=== PATIENT | female | born 1990 | race Caucasian/White ===

== ENCOUNTER 2017-11-09 11:51 | Inpatient (IN) | payer OTHER ==
[2017-11-09 13:27] LABS: ADD MAN DIFF? NO
[2017-11-09] MEDS ORDERED: BUTORPHANOL 2 MG INJ IV ×2 (13:30)
[2017-11-09] MEDS ORDERED: MISOPROSTOL 200 MCG TAB PR (13:30)
[2017-11-09] MEDS ORDERED: IBUPROFEN 600 MG TAB PO (13:30)
[2017-11-09] MEDS ORDERED: OXYTOCIN 30 UNITS/LR 500 ML IV ×2 (13:30)
[2017-11-09] MEDS ORDERED: LIDOCAINE 1% (MPF) 30 ML INJ INJ (13:30)
[2017-11-09] MEDS ORDERED: METHYLERGONOVINE 0.2 MG INJ IM (13:30)
[2017-11-09] MEDS ORDERED: CARBOPROST 250 MCG INJ IM (13:30)
[2017-11-09 13:32] LABS: BASOPHILS % 0.5 % (0.0-2.0); EOSINOPHILS # 0.1 10^3/ul (0.0-0.5); EOSINOPHILS % 1.1 % (0.0-7.0); HEMATOCRIT 36.1 % (37.0-47.0); HEMOGLOBIN 12.5 g/dl (12.0-16.0); LYMPHOCYTES # 1.6 10^3/ul (0.8-2.9); LYMPHOCYTES % 18.4 % (15.0-51.0); MEAN CORPUSCULAR HEMOGLOBIN 30.9 pg (29.0-33.0); MEAN CORPUSCULAR HGB CONC 34.6 g/dl (32.0-37.0); MEAN CORPUSCULAR VOLUME 89.4 fl (82.0-101.0); MEAN PLATELET VOLUME 8.7 fl (7.4-10.4); MONOCYTE # 0.7 10^3/ul (0.3-0.9); MONOCYTES % 8.1 % (0.0-11.0); NEUTROPHILS % 71.2 % (39.0-77.0); PLATELET COUNT 210 10^3/UL (140-415); RED BLOOD COUNT 4.04 10^6/ul (4.20-5.40)
[2017-11-09 13:32] LABS: WHITE BLOOD COUNT 8.5 10^3/ul (4.8-10.8)
[2017-11-09 13:57] LABS: INR 0.93; PROTIME 12.6 Sec (11.9-14.9)
[2017-11-09 13:58] LABS: PARTIAL THROMBOPLASTIN TIME 31.3 Sec (25.0-35.0)
[2017-11-09 14:29] LABS: HEPATITIS B SURFACE ANTIGEN NEGATIVE (NEGATIVE)
[2017-11-09 14:38] LABS: AMPHETAMINE/METHAMPHETAMINE Negative (NEGATIVE); BARBITURATES Negative (NEGATIVE); BENZODIAZEPINES Negative (NEGATIVE); CANNABINOIDS Negative (NEGATIVE); COCAINE Negative (NEGATIVE); OPIATES Negative (NEGATIVE)
[2017-11-09] MEDS: LACTATED RINGER'S 1,000 ML IV (15:52)
[2017-11-09] MEDS: OXYTOCIN 30 UNITS/LR 500 ML IV ×3 (17:51→22:20)
[2017-11-09] MEDS: OXYCODONE/ACETAMINOPHEN (5/325) TAB PO (18:12)
[2017-11-09] MEDS ORDERED: HYDROCODONE/APAP (5/325) TAB PO ×2 (21:30)
[2017-11-09] MEDS ORDERED: OXYCODONE/ASPIRIN (4.88/325) TAB PO ×2 (21:30)
[2017-11-09] MEDS ORDERED: ONDANSETRON 4 MG INJ IV (21:30)
[2017-11-09] MEDS ORDERED: DIBUCAINE 1% 30 GM OINT PR (21:30)
[2017-11-09] MEDS ORDERED: WITCH HAZEL/GLYCERIN PAD PR (21:30)
[2017-11-09] MEDS ORDERED: BENZOCAINE 20% 56 ML SPRAY TOP (21:30)
[2017-11-09] MEDS ORDERED: ACETAMINOPHEN 325 MG TAB PO (21:30)
[2017-11-09 21:34] LABS: RAPID PLASMA REAGIN NONREACTIVE (NR)
[2017-11-09] MEDS: LANOLIN 7 GM TUBE TOP (22:19)
[2017-11-09] MEDS: IBUPROFEN 600 MG TAB PO (23:42)
[2017-11-10] MEDS: IBUPROFEN 600 MG TAB PO ×3 (05:41→18:01)
[2017-11-10 09:03] LABS: ADD MAN DIFF? NO
[2017-11-10 09:09] LABS: WHITE BLOOD COUNT 12.4 10^3/ul (4.8-10.8)
[2017-11-10 09:09] LABS: BASOPHIL # 0.1 10^3/ul (0.0-0.1); BASOPHILS % 0.6 % (0.0-2.0); EOSINOPHILS # 0.1 10^3/ul (0.0-0.5); HEMATOCRIT 34.9 % (37.0-47.0); HEMOGLOBIN 12.1 g/dl (12.0-16.0); LYMPHOCYTES # 2.3 10^3/ul (0.8-2.9); LYMPHOCYTES % 18.5 % (15.0-51.0); MEAN CORPUSCULAR HEMOGLOBIN 31.2 pg (29.0-33.0); MEAN CORPUSCULAR HGB CONC 34.7 g/dl (32.0-37.0); MEAN CORPUSCULAR VOLUME 89.9 fl (82.0-101.0); MONOCYTE # 1.2 10^3/ul (0.3-0.9); MONOCYTES % 9.5 % (0.0-11.0); NEUTROPHIL # 8.6 10^3/ul (1.6-7.5); NEUTROPHILS % 69.7 % (39.0-77.0); PLATELET COUNT 179 10^3/UL (140-415); RED BLOOD COUNT 3.88 10^6/ul (4.20-5.40); RED CELL DISTRIBUTION WIDTH 13.3 % (11.5-14.5)
[2017-11-10] MEDS: SENNA/DOCUSATE NA (8.6MG/50MG) TAB PO ×2 (10:20→21:00)
[2017-11-10] MEDS: INFLUENZA VIRUS VACCINE 0.5 ML (DISPENSING) IM* (13:42)
[2017-11-11] MEDS: IBUPROFEN 600 MG TAB PO ×3 (05:35→12:48)
[2017-11-11] MEDS: SENNA/DOCUSATE NA (8.6MG/50MG) TAB PO (09:00)
[2017-11-11] MEDS: MEASLES,MUMPS,RUBELLA VACCINE INJ SC* (09:52)
[2017-11-12] MEDS ORDERED: INFLUENZA VIRUS VACCINE 0.5 ML (DISPENSING) IM* (09:00)
== END 2017-11-11 15:00 | disposition home or self-care (01) | DRG 775 ==
LOC: OBT 11:51 → L-D 11:52 → OBT 12:45 → L-D 13:06 → PP1 20:35
PROC: 10E0XZZ Delivery of Products of Conception, External Approach (ICD-10-PCS; principal; 2017-11-09)
PROC: 3E033VJ Introduction of Other Hormone into Peripheral Vein, Percutaneous Approach (ICD-10-PCS; 2017-11-09)
DX: O48.0 Post-term pregnancy (principal); Z37.0 Single live birth; Z3A.40 40 weeks gestation of pregnancy
CPT/HCPCS: 76818; 80307; 85025; 85610; 85730; 86592; 86900; 86901; 87340; 90686

== ENCOUNTER 2019-03-18 02:12 | Inpatient (IN) | payer OTHER ==
[2019-03-18] MEDS ORDERED: LACTATED RINGER'S 1,000 ML IV (02:22)
[2019-03-18] MEDS ORDERED: LIDOCAINE 1% (MPF) 30 ML INJ (02:25)
[2019-03-18] MEDS ORDERED: AMPICILLIN 2 GM/NS (PMX) 100 ML (02:25)
[2019-03-18] MEDS ORDERED: MINERAL OIL LIGHT 10 ML VIAL TOP (02:30)
[2019-03-18] MEDS ORDERED: LIDOCAINE 1% (MPF) 30 ML INJ INJ (02:30)
[2019-03-18] MEDS ORDERED: CARBOPROST 250 MCG INJ IM ×2 (02:30→05:30)
[2019-03-18] MEDS ORDERED: OXYTOCIN 30 UNITS/LR 500 ML IV ×2 (02:30→05:30)
[2019-03-18] MEDS ORDERED: MISOPROSTOL 200 MCG TAB PR ×2 (02:30→05:30)
[2019-03-18] MEDS ORDERED: BUTORPHANOL 2 MG INJ IV (02:30)
[2019-03-18] MEDS: LACTATED RINGER'S 1,000 ML IV (02:34)
[2019-03-18] MEDS: AMPICILLIN 2 GM/NS (PMX) 100 ML IV (02:34)
[2019-03-18 02:57] LABS: ADD MAN DIFF? NO
[2019-03-18 02:59] LABS: WHITE BLOOD COUNT 8.3 10^3/ul (4.8-10.8)
[2019-03-18 02:59] LABS: BASOPHIL # 0.1 10^3/ul (0.0-0.1); BASOPHILS % 0.8 % (0.0-2.0); EOSINOPHILS % 0.5 % (0.0-7.0); HEMATOCRIT 29.1 % (37.0-47.0); HEMOGLOBIN 8.5 g/dl (12.0-16.0); LYMPHOCYTES % 36.7 % (15.0-51.0); MEAN CORPUSCULAR HGB CONC 29.2 g/dl (32.0-37.0); MEAN CORPUSCULAR VOLUME 78.6 fl (82.0-101.0); MEAN PLATELET VOLUME 9.9 fl (7.4-10.4); MONOCYTE # 0.5 10^3/ul (0.3-0.9); MONOCYTES % 5.8 % (0.0-11.0); NEUTROPHIL # 4.5 10^3/ul (1.6-7.5); NUCLEATED RED BLOOD CELLS # 0.4 10^3/ul (0.0-0.0); PLATELET COUNT 139 10^3/UL (140-415); RED CELL DISTRIBUTION WIDTH 18.7 % (11.5-14.5)
[2019-03-18 03:21] LABS: INR 0.92; PROTIME 12.5 Sec (11.9-14.9)
[2019-03-18 03:22] LABS: PARTIAL THROMBOPLASTIN TIME 33.1 Sec (23.0-35.0)
[2019-03-18] MEDS: OXYTOCIN 30 UNITS/LR 500 ML IV ×2 (04:19→04:20)
[2019-03-18] MEDS: METHYLERGONOVINE 0.2 MG INJ IM (04:20)
[2019-03-18 05:05] LABS: HEPATITIS B SURFACE ANTIGEN NEGATIVE (NEGATIVE)
[2019-03-18] MEDS: LACTATED RINGER'S 1,000 ML IV* ×3 (05:06→21:06)
[2019-03-18] MEDS ORDERED: BENZOCAINE 20% 56 ML SPRAY TOP (05:30)
[2019-03-18] MEDS ORDERED: ACETAMINOPHEN 325 MG TAB PO (05:30)
[2019-03-18] MEDS ORDERED: WITCH HAZEL/GLYCERIN PAD PR (05:30)
[2019-03-18] MEDS ORDERED: METHYLERGONOVINE 0.2 MG INJ IM (05:30)
[2019-03-18] MEDS ORDERED: DIBUCAINE 1% 30 GM OINT TOP (05:30)
[2019-03-18] MEDS ORDERED: HYDROCODONE/APAP (5/325) TAB PO (05:30)
[2019-03-18] MEDS: IBUPROFEN 600 MG TAB PO ×4 (05:47→23:39)
[2019-03-18 06:22] LABS: AMPHETAMINE/METHAMPHETAMINE Negative (NEGATIVE); BARBITURATES Negative (NEGATIVE); BENZODIAZEPINES Negative (NEGATIVE); CANNABINOIDS Negative (NEGATIVE); COCAINE Negative (NEGATIVE); OPIATES Negative (NEGATIVE)
[2019-03-18] MEDS ORDERED: AMPICILLIN 1 GM/NS (PMX) 50 ML IV (06:30)
[2019-03-18] MEDS: SENNA/DOCUSATE NA (8.6MG/50MG) TAB PO ×2 (09:37→21:36)
[2019-03-18] MEDS: FERROUS SULFATE (EC) 325 MG TAB PO ×3 (09:37→21:36)
[2019-03-18 15:10] LABS: RAPID PLASMA REAGIN NONREACTIVE (NR)
[2019-03-19] MEDS: LACTATED RINGER'S 1,000 ML IV* ×3 (05:06→22:49)
[2019-03-19] MEDS: IBUPROFEN 600 MG TAB PO ×4 (05:38→23:36)
[2019-03-19 07:14] LABS: ADD MAN DIFF? NO
[2019-03-19 07:18] LABS: WHITE BLOOD COUNT 10.6 10^3/ul (4.8-10.8)
[2019-03-19 07:18] LABS: BASOPHIL # 0.1 10^3/ul (0.0-0.1); BASOPHILS % 0.9 % (0.0-2.0); EOSINOPHILS # 0.1 10^3/ul (0.0-0.5); EOSINOPHILS % 0.8 % (0.0-7.0); HEMATOCRIT 27.8 % (37.0-47.0); HEMOGLOBIN 8.3 g/dl (12.0-16.0); LYMPHOCYTES # 3.1 10^3/ul (0.8-2.9); LYMPHOCYTES % 28.9 % (15.0-51.0); MEAN CORPUSCULAR HEMOGLOBIN 23.7 pg (29.0-33.0); MEAN CORPUSCULAR HGB CONC 29.9 g/dl (32.0-37.0); MEAN CORPUSCULAR VOLUME 79.4 fl (82.0-101.0); MEAN PLATELET VOLUME 10.8 fl (7.4-10.4); MONOCYTE # 0.8 10^3/ul (0.3-0.9); MONOCYTES % 7.3 % (0.0-11.0); NEUTROPHIL # 6.4 10^3/ul (1.6-7.5); NUCLEATED RED BLOOD CELLS # 0.4 10^3/ul (0.0-0.0); PLATELET COUNT 164 10^3/UL (140-415); RED CELL DISTRIBUTION WIDTH 18.8 % (11.5-14.5)
[2019-03-19] MEDS: FERROUS SULFATE (EC) 325 MG TAB PO ×3 (09:48→23:36)
[2019-03-19] MEDS: SENNA/DOCUSATE NA (8.6MG/50MG) TAB PO ×2 (09:48→23:36)
[2019-03-20] MEDS: LACTATED RINGER'S 1,000 ML IV* (05:06)
[2019-03-20] MEDS: IBUPROFEN 600 MG TAB PO ×2 (06:14→12:32)
[2019-03-20] MEDS: DIPHTH/TET/ACEL PERTUSS (ADULT) 0.5 ML VIAL IM* (09:00)
[2019-03-20] MEDS: SENNA/DOCUSATE NA (8.6MG/50MG) TAB PO (10:07)
[2019-03-20] MEDS: FERROUS SULFATE (EC) 325 MG TAB PO ×2 (10:07→13:00)
== END 2019-03-20 17:28 | disposition home or self-care (01) | DRG 807 ==
LOC: OBT 02:12 → L-D 02:12 → OBT 02:16 → L-D 02:16 → PP1 04:57
PROVIDERS: Obstetrics & Gynecology
PROC: 10E0XZZ Delivery of Products of Conception, External Approach (ICD-10-PCS; principal; 2019-03-18)
DX: O24.429 Gestational diabetes mellitus in childbirth, unspecified control (principal); Z37.0 Single live birth; O90.81 Anemia of the puerperium; D64.9 Anemia, unspecified; Z3A.37 37 weeks gestation of pregnancy
CPT/HCPCS: 76815; 80307; 82962; 85025; 85384; 85610; 85730; 86592; 86850; 86900; 86901; 87340; 88307; 99464